=== PATIENT | female | born 1930 | race Caucasian/White ===

== ENCOUNTER 2017-02-28 18:41 | Emergency (ER) | payer MEDICARE, OTHER ==
[~2017-02-28] VITALS: Ht 152.4 cm; Wt 55.7 kg
[~2017-02-28 18:41] MED LIST: AMLO1CAP68 PO; ASPI81TA2 PO; LORA10TA7 PO
--- OUTSIDE RECORDS SUMMARY | 2017-02-28 18:45 | XMS REPORT | Continuity of Care Document ---
Author Author [facility] Organization [facility] Address Unknown Phone Unavailable Care Team Providers Care Bottle Packer Name Role Phone MARIAH JERRY MD Primary Care Physician [phone] Insurance Providers Guarantor Jazmine Goins Address [facility] [place] [address] Email DENIED/NO TO PT PORTAL Payer Medicare Policy Number [id number] Subscriber's Name Jazmine Goins Relationship 18 Self Effective Date 94 Payer [place] Policy Number [id number] Subscriber's Name Jazmine Goins Relationship 18 Self Group Number [id number] Effective Date 94 Advance Directives Directive Response Recorded Date/Time Advanced Directives Type None 05/24/14 9:45am Chief Complaint and Reason for Visit Chief Complaint Cough,Fever,Flu,URI Reason for Visit [id number] Problems Active Problems Medical Problem Onset Date Status Acute confusion Unknown Acute RIGHT MEDIAL MENISCAL TEAR Unknown Acute UTI (lower urinary tract infection) Unknown Acute UTI (lower urinary tract infection) Unknown Acute Past Problems Medical Problem Onset Date Post-nasal drainage Unknown Medications Current Home Medications Medication Dose Units Route Directions Days Qty Instructions Start Date Amlodipine Besylate/Benazepril (Amlodipine-Benazepril 10-20 Mg) 1 Cap Capsule 1 Cap Oral Daily 08/04/13 Aspirin 81 Mg Tab.chew 1 Tab Oral Daily 30 Tablet 01/12/17 Loratadine 10 Mg Tablet 10 Mg Oral Before Breakfast 14 Days 14 Tablet Take 1 tablet, by mouth, one time a day (before breakfast). Supervising physician Dr. Benny Estevez Claim Analyst [facility] [address] [facility] [phone] 01/12/17 Social History Social History Problem Response Recorded Date/Time Onset Date Status Chewing Tobacco Status No 05/24/2014 10:41am Not Applicable Not Applicable Hx Substance Use No 05/24/2014 10:41am Not Applicable Not Applicable Hx Alcohol Use No 05/24/2014 10:41am Not Applicable Not Applicable Tobacco Usage none 05/24/2014 10:16am Not Applicable Not Applicable Query Response Start Date Stop Date Smoking Status Never smoker Hospital Discharge Instructions No hospital discharge instructions. Plan of Care Discharge Date 01/12/17 11:41am Disposition 01 DISCHARGED HOME, SELF-CARE Condition at Discharge Stable Instructions/Education Provided Allergic Rhinitis (ED) Prescriptions See Medication Section Referrals MARIAH JERRY MD Address: [address] [place] [address] Additional Instructions/Education Take loratadine daily for the next 2 weeks to see if this improves her sinus drainage and coughing. Follow with your primary care provider if symptoms are not improved or if they're worsening. Functional Status No functional status results. Allergies, Adverse Reactions, Alerts Allergen Type Severity Reaction Status Last Updated ketorolac tromethamine Allergy Intermediate CAUSES PATIENT TO FEEL LIGHT HEADED Active 01/12/17 Immunizations Query Response on File Recorded Date/Time Hx Influenza Vaccination Y 201205/24/14 10:41am Hx Pneumococcal Vaccination Y 200905/24/14 10:41am Hx Tetanus, Diptheria, Pertussis No 05/24/14 10:41am Hx Influenza Vaccination Y 201205/24/14 10:41am Hx Tetanus Diptheria No 05/24/14 10:41am Hx Tetanus, Diptheria, Pertussis No 05/24/14 10:41am Hx Tetanus Toxoid Vaccination No 08/04/13 10:36am DTaP Vaccine History UNSURE 01/12/17 11:21am Influenza Vaccine Hx YES 01/12/17 11:21am Tetanus Diptheria Vaccine History UNSURE 01/12/17 11:21am Vital Signs Acute Vital Signs Vital Response Date/Time Temperature (Fahrenheit) 97.1 deg F (96.8 - 99.1) 01/12/2017 11:16am Temperature (Calculated Celsius) 36.24330 degrees C (36.0 - 37.3) 01/12/2017 11:16am Pulse Rate (adult) 75 bpm (60 - 100) 01/12/2017 11:16am O2 Sat by Pulse Oximetry 96 % (90 - 100) 01/12/2017 11:16am Blood Pressure 143/71 mm Hg 01/12/2017 11:16am Height (Inches) 58.10 inches 01/12/2017 11:16am Weight (Kilograms) 55.700 kg 01/12/2017 11:16am Body Mass Index (BMI) 25.0 01/12/2017 11:16am Results No known relevant diagnostic tests, laboratory data and/or discharge summary. Procedures No known history of procedures. Encounters Encounter Location Arrival/Admit Date Discharge/Depart Date Attending Provider Departed Emergency Room [facility] 01/12/17 10:30am 01/12/17 11: 41am LONNIE CHARLES APRN Recent Diagnosis
[2017-02-28 19:00] VITALS: Ht 152.4 cm; Wt 55.7 kg
[2017-02-28] MEDS ORDERED: AMLO5TAB2 PO (19:12)
--- NOTE | 2017-02-28 19:12 | ERPDOC ---
Departure Disposition Decision Date: Feb 28, 2017 Disposition Decision Time: 19:46 (MERLIN LOUISE APRN) Disposition: 01 DISCHARGED HOME, SELF-CARE Impression Impression (MERLIN LOUISE APRN) Impression: Primary Impression: Distal radial fracture Encounter type: initial encounter Fracture type: closed Fracture morphology : other fracture Laterality: left Qualified Codes: S52.592A - Other fractures of lower end of left radius, initial encounter for closed fracture Severity: Moderate (MERLIN LOUISE APRN) Condition: Stable Seen By: Mid-level only (MERLIN LOUISE APRN) Referrals: MARIAH JERRY MD (PCP/Family) Patient Instructions: Arm Fracture in Adults (ED) Problems/Meds/Labs Reviewed?: Yes Medications reviewed and manag: Yes (MERLIN LOUISE APRN) Additional Instructions: Keep the splint on until you follow up this week. You may follow up with your primary care provider or [facility]. [facility] number is . Ice and elevate the wrist to help with pain. Return to Er with any further issues/concerns. Follow up care ordered?: Yes Mental Status: Alert (MERLIN LOUISE APRN) HPI General Chief Complaint: Upper Extremity Injury Stated Complaint: LEFT WRIST PAIN/FALL Time Seen by Provider: 19:10 Source: patient Exam Limitations: no limitations (MERLIN LOUISE APRN) Time Seen by Provider: 19:10 (MARCH,[facility] DO) HPI Hand/Forearm Initial Comments She was at home earlier today and fell. She landed with her left hand out. Since then has had pain in the left distal wrist. Pain is worse with movement. Denies any numbness/tingling of the left hand or fingers. Occurred At: home Onset: Rapid Duration: 1 hr Severity: moderate Location: left: wrist Method of Injury: fell, FOOSH Associated Symptoms: bruising, pain with extension, pain with flexion, pain with grasp, swelling, DENIES: numbness, pallor, redness, weakness (MERLIN LOUISE APRN) Allergies: Coded Allergies: ketorolac tromethamine (Verified Allergy, Intermediate, CAUSES PATIENT TO FEEL LIGHT HEADED, 02/28/17) Past History Past Medical History Metabolic: hypertension (NOLD,MERLIN N [employer]IRAL [employer]NER) Surgical History Denies Surgeries (NOLD,MERLIN N SPIRAL RUNNER) Family History Family History: Negative (NOLD,MERLIN N SPIRAL RUNNER) Vaccines Hx Influenza Vaccination: Yes (2012) Hx Pneumococcal Vaccination: Yes (2009) Hx Tetanus Diptheria: No Hx Tetanus, Diptheria, Pertuss: No (NOLD,MERLIN N SPIRAL RUNNER) Social History Tobacco Usage: none Alcohol Usage: none Drug Usage: none IV Drug Use: No Residence: home (NOLD,MERLIN N SPIRAL RUNNER) Review of Systems Constitutional Constitutional: DENIES: chills, dizziness, fatigue, fever, weakness (NOLD, MERLIN N SPIR[employer]NER) Musculoskeletal General: joint pain (left wrist), joint swelling (left wrist), pain (left wrist ), tenderness (left distal radius and ulna), DENIES: weakness (NOLD,MERLIN N SPIRAL RUNNER) Neurological General: DENIES: numbness, tingling (NOLD,MERLIN N SPIRAL RUNNER) Exam General General Nourishment: well nourished, well developed, appears stated age, no acute distress, adult General Body Habitus: well groomed Vital Signs: RN Vital Signs have been reviewed: Yes Height (Inches): 58.10 (NOLD,MERLIN N SPIRAL RUNNER) Fastrak Hand/Forearm Hand/Forearm : Upper Extremity: Left Elbow: extension intact, flexion intact, NOT FOUND: deformity, ecchymosis, erythema, swelling, tender Forearm: ecchymosis, pronation intact, supination intact, swelling, tender, NOT FOUND: deformity, erythema, laceration Wrist: ROM intact (but limited due to pain), ecchymosis (left distal forearm , dorsal aspect), swelling (left distal forearm ), tender (left distal forearm) , NOT FOUND: deformity, erythema, snuff box tenderness, thenar eminence tender Hand: NOT FOUND: deformity, ecchymosis, erythema, laceration, swelling, tender Fingers: cap refill <2sec ea digit, NOT FOUND: deformity, ecchymosis, erythema, impaired abduction, impaired adduction, impaired extension, impaired flexion, impaired grasp, laceration, nail avulsion, rotational deformity, subungual hematoma, swelling, tender Radial Pulse: 2+ (NOLD,MERLIN N SPIRAL RUNNER) Neurologic RN Documented GCS Eye Opening: Verbal: Motor: Total: (MERLIN LOUISE APRN) Differential Diagnoses Considering: Contusion, Dislocation, Fracture, Sprain, Strain (MERLIN LOUISE APRN) Procedures Procedures Performed Procedures Performed: Splinting (MERLIN LOUISE APRN) Splinting Procedure Splint : Pre-placement NV: FOUND: cap refill < 3 sec, good movement, good sensation Hand-Made Type: orthoglass Splint: sugar-tong Post-placement NV: FOUND: cap refill < 3 sec, good movement, good sensation Applied by: ANEL/DONNELL (MERLIN LOUISE APRN) Progress Results/Orders Orders Procedure Category Date Status Time Wrist Left 3-4 Views RAD 02/28/17 Taken Hand-Made Splint EDM 02/28/17 Transmitted 19:45 (MARCH,BERYL Humphreys DO) Progress Progress Did talk with Donato TAM regarding fracture. Does recommend having her placed in sugar tong splint and have her ice and elevate. Have her follow up with PCP or ortho this week or early next week for re-xray of the fracture. She is not having much pain currently. Will have her use Tylenol for pain. (MERLIN LOUISE APRN) Xray Xray : Reason for Exam: left wrist pain Xray: Wrist L Interpretation: Abnormal (possible left distal radial fracture) (EMRLIN LOUISE APRN) MERLIN LOUISE APRN Feb 28, 2017 19:12 MARCH,BERYL Humphreys DO Feb 28, 2017 22:54
[2017-02-28 20:00] VITALS: BP 162/59; PULSE 87; RESP 16; TEMP 97.5; O2SAT 98
--- NOTE | 2017-03-01 07:58 | DI ---
Indication: ITS.REASON: left wrist pain PROCEDURE: WRIST LEFT 3-4 VIEWS: Encounter: Initial Comparison: None Findings: There is a nondisplaced fracture of the dorsal cortex of the distal radius best seen on the lateral view. No additional acute fracture or dislocation seen. Severe degenerative change in the first carpometacarpal joint. Bony demineralization limiting detection of nondisplaced fractures. Impression: Closed posttraumatic nondisplaced fracture of the distal radius. .
== END 2017-02-28 20:00 | disposition home or self-care (01) ==
LOC: ED 18:41
DX: S52.592A Other fractures of lower end of left radius, initial encounter for closed fracture (principal); W19.XXXA Unspecified fall, initial encounter; Y93.9 Activity, unspecified; Y92.009 Unspecified place in unspecified non-institutional (private) residence as the place of occurrence of the external cause; Y99.8 Other external cause status

== ENCOUNTER → 2017-03-03 | Outpatient (CLI) | payer MEDICARE, OTHER ==
[~2017-03-03] MED LIST changes: -AMLO1CAP68 PO; +AMLO5TAB2 PO; -LORA10TA7 PO
--- NOTE | 2017-03-03 10:58 | DI ---
Indication: ITS.REASON: S52.502A FX LT WRIST PROCEDURE: WRIST LEFT 2 VIEW: Encounter: Subsequent Comparison: February 28, 2017 Findings: Nondisplaced distal radial fracture is seen in a cast which obscures fine bony detail. No new fracture or dislocation seen. Impression: Stable alignment of the nondisplaced distal radial fracture in a cast. .
== END ==
LOC: IMA 10:21
PROVIDERS: ATTEND Family Medicine
DX: Z47.89 Encounter for other orthopedic aftercare (principal)

== ENCOUNTER → 2017-03-31 | Outpatient (CLI) | payer MEDICARE, OTHER ==
--- NOTE | 2017-03-31 10:46 | DI ---
Indication: ITS.REASON: S52.502A FRACTURE OF THE LOWER END OF LT RADIUS PROCEDURE: WRIST LEFT 2 VIEW: Encounter: Subsequent Comparison: March 03, 2017 Findings: Nondisplaced distal radial fracture appears stable in alignment in a cast. No new fracture or dislocation. There is some sclerosis along the fracture margin suggesting ongoing healing. Casting material obscures fine bony detail. Impression: Stable alignment and routine healing of the distal radial fracture in a cast. .
== END ==
LOC: IMA 10:16
PROVIDERS: ATTEND Family Medicine
DX: S52.502D Unspecified fracture of the lower end of left radius, subsequent encounter for closed fracture with routine healing (principal); W19.XXXD Unspecified fall, subsequent encounter